=== PATIENT | male | born 1970 | race Caucasian/White ===

== ENCOUNTER 2022-10-09 11:49 | Outpatient (CLI) | payer OTHER, SELFPAY ==
[2022-10-09 20:08] LABS: Basophils Absolute Auto 0.1 K/mm3 (0.0-0.1); Basophils Percent Auto 0.6 % (0.2-1.2); Eosinophils Absolute Auto 0.2 K/mm3 (0-0.3); Eosinophils Percent Auto 2.4 % (0-4.4); Hematocrit 45.2 % (42.0-52.0); Hemoglobin 15.3 g/dL (14.0-18.0); Immature Granulocyte Absolute 0.05 K/mm3 (0.00-0.031); Immature Granulocyte Percent A 0.6 % (0-0.5); Lymphocytes Percent Auto 26.9 % (18.3-44.2); Mean Corpuscular HGB Conc 33.8 g/dl (32-36); Mean Corpuscular Hemoglobin 29.8 pg (26-34); Mean Corpuscular Volume 87.9 fl (80-100); Mean Platelet Volume 9.6 fl (7.4-10.4); Monocytes Absolute Auto 0.7 K/mm3 (0.1-0.6); Neutrophils Absolute Auto 4.9 K/mm3 (1.3-6.7); Neutrophils Percent Auto 60.5 % (45.5-73.1); Platelet Count Result 374 k/mm3 (150-375); Red Blood Count 5.14 M/mm3 (4.6-6.20); Red Cell Distribution Width 12.1 % (11.5-14.5); White Blood Count 8.2 K/mm3 (4.5-10.0)
[2022-10-09 20:22] LABS: Alanine Aminotransferase 48 U/L (6-50); Albumin Level 4.3 g/dL (3.5-5.1); Alkaline Phosphatase 83 U/L (38-126); Anion Gap 6 mmol/L (8-16); Aspartate Amino Transferase 49 U/L (17-59); Bilirubin,Total 0.5 mg/dL (0.2-1.3); Blood Urea Nitrogen 20 mg/dL (9-20); Calcium 9.5 mg/dL (8.4-10.2); Carbon Dioxide 31 mmol/L (22-30); Chloride 101 mmol/L (98-107); Cholesterol 205 mg/dL (0-200); Estimated Glomerular Filt Rate > 60; Glucose 81 mg/dL (65-110); HDL Direct 39 mg/dL; Potassium 4.8 mmol/L (3.4-5.0); Sodium 138 mmol/L (137-145); Triglycerides 209 mg/dL (<150)
[2022-10-09 20:33] LABS: LDL Cholesterol Direct 119 mg/dL
[2022-10-09 20:55] LABS: Prostate Specific Antigen 0.9 ng/mL (< OR = 4.0)
== END 2022-10-09 11:50 | disposition home or self-care (01) ==
LOC: ANHGOSHLAB 11:50
PROVIDERS: PCP Family Medicine; Visit Provider Family Medicine
DX: Z12.5 Encounter for screening for malignant neoplasm of prostate (principal); Z79.899 Other long term (current) drug therapy; I10 Essential (primary) hypertension
CPT/HCPCS: 36415; 80053; 80061; 84153; 84439; 84443; 85025; G0103

== ENCOUNTER 2022-10-12 15:37 | Outpatient (CLI) | payer OTHER, SELFPAY ==
--- NOTE | ~2022-10-12 | XR_ITS ---
XR chest 2V DATE: 10/12/2022 15:57 INDICATION: Cough for one week TECHNIQUE: PA and lateral views COMPARISON: None FINDINGS: Normal heart size. No hilar or mediastinal enlargement. No pulmonary infiltrate or consolid ation, pleural effusion or pulmonary vascular congestion or pneumothorax. IMPRESSION: No active cardiopulmonary disease Reviewed, dictated and finalized at [facility] L. RN GREEK STUDIES PROFESSOR
== END 2022-10-12 15:38 | disposition home or self-care (01) ==
PROVIDERS: PCP Family Medicine; Visit Provider Physician Assistant
DX: R05.9 Cough, unspecified (principal)
CPT/HCPCS: 71046

== ENCOUNTER 2022-10-23 02:13 | Day surgery (SDC) | payer OTHER, SELFPAY ==
[2022-10-05 14:36] VITALS: BMI 29.4
[2022-10-23 09:23] VITALS: BP 152/79; PULSE 69; RESP 18; TEMP 36.6; O2SAT 99; BMI 29.5
[2022-10-23] MEDS: LACTATED RINGERS 1,000 ML 150 ML IV CONT (09:31)
--- NOTE | 2022-10-23 09:57 | WPDANESEPPF ---
Anes - Initial Pre Proc Eval Procedure: Operation Date: 10/23/22 10:30 Proposed Procedures p Screening Colonoscopy - Sarath Diego MD Date/Time: 10/23/22 09:57 Surgeon: Sarath Diego MD Pre Op Diagnosis: neoplasm screening Patient Data Age: 52 Gender: M Height: 1.78 m Weight: 93.4 kg Last Vital Signs Temp 97.8 F 10/23/22 09:23 Pulse 69 10/23/22 09:23 Resp 18 10/23/22 09:23 BP 152/79 H 10/23/22 09:23 Pulse Ox 99 10/23/22 09:23 O2 Del Method Room Air 10/23/22 09:23 Allergies Allergy/AdvReac Type Severity Reaction Status Date / Time tetracycline Allergy Intermediate Hives / Verified 10/23/22 09:21 Red Face azithromycin Allergy Unknown Rash Verified 10/23/22 09:21 erythromycin base Allergy Unknown Skin Verified 10/23/22 09:21 Reaction hydrochlorothiazide Allergy Unknown Rash Verified 10/23/22 09:21 lisinopril Allergy Unknown Rash Verified 10/23/22 09:21 minocycline Allergy Unknown Skin Verified 10/23/22 09:21 Reaction irbesartan AdvReac Intermediate cough Verified 10/23/22 09:21 Home Medications Medication Instructions Recorded Confirmed Type cetirizine 10 mg tablet (All Day 10 mg PO DAILY 08/13/19 10/23/22 History Allergy (cetirizine)) fluticasone propionate 50 See Rx Instructions .Route 07/29/21 10/23/22 Rx mcg/actuation nasal .COMPLEX #16 mL spray,suspension pseudoephedrine HCl 120 mg See Rx Instructions .Route 12/17/21 10/23/22 Rx tablet,extended release (12 Hour .COMPLEX #180 tabs Decongestant ER) olmesartan 40 mg tablet (Benicar) 40 mg PO DAILY #180 tabs 04/07/22 10/23/22 Rx gabapentin 100 mg capsule 300 mg PO QHS #90 caps 05/10/22 10/23/22 Rx verapamil 180 mg 24 hr 180 mg PO DAILY #90 caps 05/17/22 10/23/22 Rx capsule,extended release amitriptyline 10 mg tablet 10 mg PO QHS #90 tabs 07/10/22 10/23/22 Rx ropinirole 0.5 mg tablet See Rx Instructions .Route 08/23/22 10/23/22 Rx .COMPLEX #450 tabs montelukast 10 mg tablet See Rx Instructions .Route 09/06/22 10/23/22 Rx .COMPLEX #90 tabs alprazolam 0.5 mg tablet 1 mg PO DAILY PRN anxiety #90 tabs 09/27/22 10/23/22 Rx fluticasone furoate 200 1 inh inhalation Q24H #60 ea 10/09/22 10/23/22 Rx mcg-vilanterol 25 mcg/dose inhalation powder (Breo Ellipta) valacyclovir 1 gram tablet 2,000 mg PO BID PRN Cold Sores #20 10/09/22 10/23/22 Rx tabs benzonatate 100 mg capsule 100 mg PO TID PRN cough #30 caps 10/16/22 10/23/22 Rx Patient hx anesthesia problems: none Family hx anesthesia problems: none Results Review: All pre-operative results and documents have been reviewed as part of the pre-operative evaluation. [facility] Past Medical History Medical History Pain in right shoulder Surgical History Surgical History H/O hernia repair History of vasectomy Family History Family History Father Family history of glaucoma Mother Hypertension Cerebrovascular accident Grandparent Hypertension Cerebrovascular accident Malignant neoplasm of prostate Family history of cardiovascular disease Social History Social History Smoking status: Never smoker Alcohol intake: current Drinks per week: 2 Substance use type: does not use Living arrangements: alone Anes - Eval Final PreProcedure Day of Procedure 10/23/22 09:57 Patient weight: obese Heart: regular rate and rhythm Lungs: clear to auscultation Neurological: alert and oriented Last oral intake: >/= 8 hours Emergent: no Anesthetic plan: proceed Results Review: All pre-operative results and documents have been reviewed as part of the pre-operative evaluation. Informed Consent: The patient's anesthetic plan and its attendant risks and benefits were discu
--- NOTE | 2022-10-23 10:07 | PM.HPGS ---
History of Present Illness History of Present Illness Consent: Risks, benefits, and alternatives have been discussed and questions answered. Patient agrees to proceed with procedure. Chief complaint: neoplasm screening Narrative: Issa Santana is a 52 year old male here for screening colonoscopy Review of Systems Constitutional: Constitutional: Denies headache(s) and Denies weakness Eyes: Eyes: Denies blurry vision ENT: Reports Normal hearing present, Denies headache(s) and Denies neck pain Cardiovascular: Cardiovascular: Denies chest pain and Denies dyspnea Respiratory: Respiratory: Denies dyspnea Gastrointestinal: Gastrointestinal: Reports no additional gastrointestinal complaints Genitourinary: Genitourinary: Denies dysuria Musculoskeletal: Musculoskeletal: Denies neck pain Integumentary/Breasts: Skin/Breast: Denies dry skin Neurologic: Reports Normal hearing present, Denies headache(s) and Denies weakness Psychiatric: Psychiatric: Denies anxiety Endocrine: Endocrine: Denies change in body appearance Hematologic/Lymphatic: Hematologic/Lymphatic: Denies easy bleeding Allergic/Immunologic: Allergic/Immunologic: Denies urticaria PMF Past Medical History Medical History Pain in right shoulder Surgical History Surgical History H/O hernia repair History of vasectomy Family History Family History Father Family history of glaucoma Mother Hypertension Cerebrovascular accident Grandparent Hypertension Cerebrovascular accident Malignant neoplasm of prostate Family history of cardiovascular disease Social History Social History Smoking status: Never smoker Alcohol intake: current Drinks per week: 2 Substance use type: does not use Living arrangements: alone Meds Home Medications and Allergies Home Medications Medication Instructions Recorded Confirmed Type cetirizine 10 mg tablet (All Day 10 mg PO DAILY 08/13/19 10/23/22 History Allergy (cetirizine)) fluticasone propionate 50 See Rx Instructions .Route 07/29/21 10/23/22 Rx mcg/actuation nasal .COMPLEX #16 mL spray,suspension pseudoephedrine HCl 120 mg See Rx Instructions .Route 12/17/21 10/23/22 Rx tablet,extended release (12 Hour .COMPLEX #180 tabs Decongestant ER) olmesartan 40 mg tablet (Benicar) 40 mg PO DAILY #180 tabs 04/07/22 10/23/22 Rx gabapentin 100 mg capsule 300 mg PO QHS #90 caps 05/10/22 10/23/22 Rx verapamil 180 mg 24 hr 180 mg PO DAILY #90 caps 05/17/22 10/23/22 Rx capsule,extended release amitriptyline 10 mg tablet 10 mg PO QHS #90 tabs 07/10/22 10/23/22 Rx ropinirole 0.5 mg tablet See Rx Instructions .Route 08/23/22 10/23/22 Rx .COMPLEX #450 tabs montelukast 10 mg tablet See Rx Instructions .Route 09/06/22 10/23/22 Rx .COMPLEX #90 tabs alprazolam 0.5 mg tablet 1 mg PO DAILY PRN anxiety #90 tabs 09/27/22 10/23/22 Rx fluticasone furoate 200 1 inh inhalation Q24H #60 ea 10/09/22 10/23/22 Rx mcg-vilanterol 25 mcg/dose inhalation powder (Breo Ellipta) valacyclovir 1 gram tablet 2,000 mg PO BID PRN Cold Sores #20 10/09/22 10/23/22 Rx tabs benzonatate 100 mg capsule 100 mg PO TID PRN cough #30 caps 10/16/22 10/23/22 Rx Allergies Allergy/AdvReac Type Severity Reaction Status Date / Time tetracycline Allergy Intermediate Hives / Verified 10/23/22 09:21 Red Face azithromycin Allergy Unknown Rash Verified 10/23/22 09:21 erythromycin base Allergy Unknown Skin Verified 10/23/22 09:21 Reaction hydrochlorothiazide Allergy Unknown Rash Verified 10/23/22 09:21 lisinopril Allergy Unknown Rash Verified 10/23/22 09:21 minocycline Allergy Unknown Skin Verified 10/23/22 09:21 Reaction irbesartan AdvReac Intermediate cough Verified 09/26
[2022-10-23 10:21] VITALS: BP 128/71; PULSE 77; RESP 22; O2SAT 99
[2022-10-23 10:31] VITALS: BP 122/51; PULSE 75; RESP 22; O2SAT 99
[2022-10-23 10:41] VITALS: BP 136/90; PULSE 70; RESP 20; O2SAT 100
== END 2022-10-23 10:55 | disposition home or self-care (01) ==
PROVIDERS: PCP Family Medicine; Visit Provider Internal Medicine Gastroenterology
PROC: 0DJD8ZZ Inspection of Lower Intestinal Tract, Via Natural or Artificial Opening Endoscopic (ICD-10-PCS; CPT 45378; principal; 2022-10-23 10:30)
DX: Z12.11 Encounter for screening for malignant neoplasm of colon (principal); K64.8 Other hemorrhoids; E66.9 Obesity, unspecified; Z68.29 Body mass index [BMI] 29.0-29.9, adult
CPT/HCPCS: 45378; J2704; J7120

== ENCOUNTER 2025-01-21 09:33 | Outpatient (CLI) | payer OTHER, SELFPAY ==
--- NOTE | 2025-01-21 10:13 | ECG_ITS ---
Test Date: 2025-01-21 10:22:00 Measurements Intervals [place] Rate: 60 P: 19 UT: 173 QRS: 19 QRSD: 118 T: 24 QT: 407 QTc: 407 Interpretive Statements SINUS RHYTHM INTRAVENTRICULAR CONDUCTION DELAY DELAYED PRECORDIAL R/S TRANSITION CONSIDER INFERIOR INFARCT, AGE INDETERMINATE ABNORMAL ECG No previous ECG available for comparison Electronically Signed On 01-21-2025 10:57:03 CDT by Jaime Camara D.O.
--- OUTSIDE RECORDS SUMMARY | 2025-01-21 10:29 | XMS_ITS | Clinical Summary ---
Author Organization [facility] Address Formerly [facility] [place] [address] Care Team Providers Care Senior Examiner Name Role Phone Rajinder Leung MD Primary Care Provider [phone] Social History Tobacco Use Types Packs/Day Years Used Date Smoking Tobacco: Never Assessed Sex and Gender Information Value Date Recorded Sex Assigned at Not on file Legal Sex Male 7:33 PM CDT Gender Identity Not on file Sexual Orientation Not on file Plan of Treatment Health Maintenance Due Date Last Done Comments Colorectal Cancer Screening Colonoscopy (10 Years) 1972 Annual Physical 1975 Hepatitis C 1990 Hepatitis B Vaccines (1 of 3 - 19+ 3-dose series) 1991 DTaP, Tdap and Td Vaccines ( 1 - Tdap) 10/12/2020 10/11/2020 Pneumococcal Vaccine: 50+ Years (1 of 1 - PCV) 2022 Zoster Vaccines (1 of 2) 2022 COVID-19 Vaccine (3 - 2023-2 5 season) 2024 05/06/2021, 04/15/2021 Meningococcal B Vaccine Aged Out No l onger eligible based on patient's age to complete this topic Meningococcal Vaccine Aged Out No jeannette husam eligible based on patient's age to complete this topic RSV Immunizations Under 20 Months Aged Out No longer eligible b ased on patient's age to complete this topic Insurance [facility] Care Teams Senior Examiner Relationship Specialty Start Date End Date Rajinder Leung MD [address] [place] [address] PCP - General FAMILY PRACTICE 11/14/21
--- OUTSIDE RECORDS SUMMARY | 2025-01-21 10:29 | XMS_ITS | Clinical Summary ---
Author Organization [facility] Address [address] [place] [address] Care Team Providers Care Windows Mobile Developer Name Role Phone Noaln Jones MD Primary Care Provider [phone] Allergies No known active allergies Medications ALPRAZolam (XANAX) 0.5 mg tabletIndicatio ns:anxiety Take 1 tablet (0.5 mg total) by mouth nightly 3 Active amitriptyline (ELAVIL) 10 mg tabletIndicatio ns:anxiety Take 1 tablet (10 mg total) by mouth nightly 3 Active fluticasone propionate (FLONASE) 50 mcg/actuation nasal sprayIndication s:Allergic Rhinitis Administer 1 spray into each nostril every morning 3 Active montelukast (SINGULAIR) 10 mg tabletIndicatio ns:Seasonal Allergic Rhinitis Take 1 tablet (10 mg total) by mouth every morning 3 Active olmesartan (BENICAR) 40 mg tabletIndicatio ns:hypertension Take 1 tablet (40 mg total) by mouth every morning Pt unsure of dosage so I contacted his pharmacy and he is to take a 40 mg tablet once daily 3 Active rOPINIRole (REQUIP) 0.5 mg tabletIndicatio ns:Restless Legs Syndrome Take 1 tablet (0.5 mg total) by mouth nightly 3 Active verapamil ER (VERELAN) 180 mg 24 hr capsuleIndicati ons:hypertensio n Take 1 capsule (180 mg total) by mouth nightly 3 Active valACYclovir (VALTREX) 1 gram tablet Take 0.5 tablets (500 mg total) by mouth daily as needed (fever blister) 3 Active vitamin E 400 unit capsuleIndicati ons:Dr prescribed Take 1 capsule (400 Units total) by mouth nightly Active magnesium oxide (MAG-OX) 400 mg (241.3 mg elemental magnesium) tabletIndicatio ns:Leg cramps Take 1 tablet (400 mg total) by mouth nightly Active herbal drugs capsule Take 2 capsules by mouth 2 (two) times a day Glaucoma Shield 2 capsules by mouth twice daily Active herbal drugs tablet Take by mouth [place] Eye Drops 1 drop each eye nightly and as needed for dry eye Active Active Problems Problem Noted Date Diagnosed Date Obstructive sleep apnea 04/13/2023 FELTON (obstructive sleep apnea) 02/06/2023 Dysphagia 02/06/2023 Surgical History Surgery Date Site/Laterality Comments TONSILLECTOMY AND ADENOIDECTOMY As a child INGUINAL HERNIA REPAIR Left As a child VASECTOMY not sure when/ infection and had same surgery a few years later Medical History Medical History Date Comments Allergic rhinitis Obstructive sleep apnea Hypertension Restless leg syndrome Family History Medical History Relation Name Comments Anesthesia problems Neg Hx Social History Tobacco Use Types Packs/Day Years Used Date Smoking Tobacco: Never Smokeless Tobacco: Never AUDIT-C Answer Date Recorded Q1: How often do you have a drink containing alc ohol? 2-4 times a month 06/01/2023 Q2: How many drinks containi ng alcohol do you have on a typical day when you are drinking? 3 or 4 06/01/2023 Q3: How often do you have si x or more drinks on one occasion? 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 Gender Identity Not on file Sexual Orientation Not on file Obstetrics History Last Filed Vital Signs Vital Sign Reading Time Taken Comments Blood Pressure - - Pulse - - Temperature - - Respiratory Rate - - Oxygen Saturation - - Inhaled Oxygen Concentration - - Weight 93 kg (205 lb) 06/01/2023 5:30 PM CDT Height 177.8 cm (5' 10 ) 06/01/2023 5:30 PM CDT Body Mass Index 29.41 06/01/2023 5:30 PM CDT Plan of Treatment Health Maintenance Due Date Last Done Comments Colon Cancer Screening-Colonoscopy 1972 Depression Screening 1972 Hepatitis C Screening 1972 Prostate Cancer Screening-PSA 1972 Hepatitis B Screening 1990 Regular Well Visit/Exam 18-64 1990 DTaP/Tdap/Td Vaccine (1 - Tdap) 10/12/2020 10/11/2020 Zoster Vaccine (1 of 2) 2022 Covid-19 Vaccine (3 - 2023-2 5 season) 2024 05/06/2021, 04/15/2021 Influenza Vaccine (#1) 2024 , 06/19/2018, 10/22/2017 Pneumococcal vaccine <65 Aged Out No longer eligible based on patient's age to complete this topic Insurance [facility] Address: [place] [address] [facility] Address: [place] [address] Care Teams Windows Mobile Developer Relationship Specialty Start Date End Date Nolan Jones MD PCP - General Family Medicine 10/26/22
--- OUTSIDE RECORDS SUMMARY | 2025-01-21 10:29 | XMS_ITS | Referral Summary ---
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 Gender Identity Not on file Sexual Orientation Not on file Last Filed Vital Signs Vital Sign Reading Time Taken Comments Blood Pressure - - Pulse - - Temperature - - Respiratory Rate - - Oxygen Saturation - - Inhaled Oxygen Concentration - - Weight 93 kg (205 lb) 06/01/2023 5:30 PM CDT Height 177.8 cm (5' 10 ) 06/01/2023 5:30 PM CDT Body Mass Index 29.41 06/01/2023 5:30 PM CDT Plan of Treatment Not on file Insurance [facility] Care Teams Machine Etcher Relationship Specialty Start Date End Date Nolan Jones MD PCP - General Family Medicine 10/26/22
== END 2025-01-21 09:34 | disposition home or self-care (01) ==
PROVIDERS: PCP Family Medicine; Visit Provider Otolaryngology
DX: J34.89 Other specified disorders of nose and nasal sinuses (principal); I45.9 Conduction disorder, unspecified; R94.31 Abnormal electrocardiogram [ECG] [EKG]
CPT/HCPCS: 93005

== ENCOUNTER 2025-08-11 08:23 | Outpatient (CLI) | payer OTHER, SELFPAY ==
--- NOTE | 2025-08-31 14:03 | P.SLEEP_ITS ---
Sleep Study - Home Unattended Date of Study: 08/11/25 Ordering Provider: Carmencita Coburn DO Interpreting Provider: Carmencita Coburn DO Home Sleep Study Type: Watch PAT Height: 1.78 m Weight: 97.069 kg Body Mass Index: 30.7 Neck Circumference (inches): 17 Squires: 0 Reason for Sleep Study Restless Legs syndrome and difficulty tolerating CPAP due to nasal septum surgery Sleep History The patient is a 55-year-old male that had a home sleep test ordered by his sleep physician for evaluation of sleep apnea. The patient was previously diagnosed with sleep apnea but has not used his CPAP recently due to recent nasal septum surgery. The patient admits to snoring loudly. He denies interruptions in breathing while asleep. He denies choking or gasping at night. He denies having trouble breathing on his back. He denies morning headaches. He does have a dry or sore mouth / throat in the morning. He denies nocturnal heartburn. He denies nocturia. He does have trouble falling and staying asleep. He denies having trouble returning to sleep if he wakes up throughout the night. He does use hypnotics or sedatives. He denies feeling anxious about sleep. He denies feeling tired or sleepy during the day. He denies feeling tired in the morning. He denies having the urge to fall asleep during the day. He denies feeling drowsy while driving. He denies sleep paralysis, cataplexy and hypnagogic/ hypnopompic hallucinations. He denies clenching or grinding his teeth. He denies kicking or jerking his legs excessively. He does have a restless feeling in his legs it does cause an urge to move his legs. It gets better with activity and worse with rest. It only occurs in the evening and it does cause a disturbance in his sleep. He goes to bed at 11:00 p.m. on work days and at midnight on his days off. It takes him 30 minutes to fall asleep. He gets 6-1/2 hours of sleep on work days and 8 hours on his days off. His sleep is somewhat restorative on his days off. He denies taking any planned naps. He denies dream enactment behavior. He denies sleep walking. He consumes 3-4 cups of caffeinated beverage per day. He consumes 2 alcoholic beverages 1-2 nights per week. He denies tobacco use. He exercises 3-4 nights per week. [facility]LY [facility], [facility] Past Medical History Medical History Pain in right shoulder Surgical History Surgical History H/O hernia repair History of vasectomy Family History Family History Father Family history of glaucoma Cellulitis Heart disease Mother Hypertension Cerebrovascular accident Grandparent Hypertension Cerebrovascular accident Malignant neoplasm of prostate Family history of cardiovascular disease Social History Social History Smoking status: Never smoker Alcohol intake: current Drinks per week: 2 Substance use type: does not use Living arrangements: alone Medications Home Medications ?Medication ?Instructions ?Recorded ?Confirmed ?Type cetirizine 10 mg tablet (All Day 10 mg PO DAILY 07/29/25 History Allergy (cetirizine)) calcium carbonate 600 mg PO DAILY 02/07/2402/15 History omega-3 fatty acids 1,000 mg 1,000 mg PO BID 02/07/24 07/29/25 History capsule vitamin E 1,150 unit/1.25 mL oral 1,150 unit PO DAILY 02/07/24 07/29/25 History liquid olmesartan 40 mg tablet (Benicar) 40 mg PO DAILY #180 tabs 09/22/24 07/29/25 Rx alprazolam 0.5 mg tablet 1 mg (2 x 0.5 mg) PO DAILY P RN 12/18/24 07/29/25 Rx anxiety #90 tabs amitriptyline 10 mg tablet 10 mg PO QHS #90 tabs 03/1307/29/25 Rx verapamil 180 mg 24 hr 180 mg PO DAILY #90 caps 07/29/25 Rx capsule,extended release valacyclovir 1 gram tablet 2,000 mg (2 x 1 gram) PO BI D PRN 04/23/25 07/29/25 Rx Cold Sores #20 tabs fluticasone propionate 50 1 spray intranasal DAILY 07/29/25 History mcg/actuation nasal spray,suspension (Flonase Allergy Relief) pyridoxine (vitamin B6) 50 mg 50 mg PO DAILY 05/27/25 07/29/25 History tablet ropinirole 0.5 mg tablet See Rx Instructions .Route 0 06/10/25 07/29/25 Rx .COMPLEX #450 tabs eszopiclone 2 mg tablet (Lunesta) 2 mg PO QHS #1 table t 07/29/25 07/29/25 Rx magnesium 250 mg tablet 400 mg PO DAILY 07/29/2502/15 History Sleep Procedure The sleep study was completed using [employer] a technically adequate device with seven channels: peripheral arterial tone, actigraphy, body position, snore, respiratory movement, pulse oximetry, sleep staging, and heart rate. Prior to using the device, the patient received verbal and written instructions for its application and was provided with the help desk phone number for additional telephonic instruction with 24-hour availability of qualified personnel to answer questions. The study was scored using CMS guidelines. Sleep Architecture The total recording time is 8 hrs, 14 min. The total sleep time is 7 hrs, 19 min. Sleep latency is 17 minutes. REM latency is 83 minutes. The patient had 5 episodes of waking. Sleep architecture shows 14.2% deep sleep, 58.6% light sleep, and (as % Total Sleep Time) showed NREM (Light 58.6%; Deep 14.2%), and a 27.2% stage REM. The patient spent 90.8% of total sleep time in the supine position. Sleep efficiency was 88.87. Respiratory Analysis The overall AHI (pAHI 4%:) is 7.1. The overall AHI (pAHI 3%:) is 8.6. The central AHI is 1.6. The AHI was 9.4 in NREM and 6.6 in REM sleep. The AHI was 7.0 in Supine and 25.9 in Non-supine sleep. Percent of [place] respirations is 0.0. Oximetry Data The oxygen desaturation index (HOLLIS 4%:) is 5.5. The mean saturation is 94%, and the lowest saturation is 79%. Time spent with saturation < 88% is 1.5 minutes. Snoring Profile Snoring average intensity is 42 dB. The patient snored above 45 decibels for 72.9 minutes, 16.6% of sleep time. Cardiac Profile The average pulse rate is 65 beats per minutes. The lowest pulse rate is 52 bpm. The highest pulse rate reported is 89 bpm. Atrial fibrillation was not detected. Premature beats occur <0.1 per minute. Assessment and Plan Assessment and Plan (1) FELTON (obstructive sleep apnea): Code(s): G47.33 - Obstructive sleep apnea (adult) (pediatric) Status: Acute Assessment and Plan: The patient had an overall AHI of 7.1 with desaturation down to 79%. This is consistent with mild sleep apnea. Due to the patient's restless leg syndrome, he qualifies for treatment. I recommend that the patient be prescribed Resmed AutoPAP 5-15 cm H2O, CPAP mask/filters/heted tubing and heated humidity. This should be used with all episodes of sleep.? Compliance should be reviewed within 31-90 days of starting therapy for usage greater than 4 hours per night greater than 70% of the nights. The patient should be asked about symptoms such as?excessive daytime sleepiness, quality of sleep, decreased nocturia, increased?mental functioning such as memory, mood, and concentration. Data The data obtained during this sleep study is adequate for interpretation. Certification This sleep study has been reviewed by a board certified sleep medicine physician.
[2025-08-31 14:04] VITALS: BMI 30.7
== END 2025-08-12 10:30 | disposition home or self-care (01) ==
PROVIDERS: PCP Family Medicine; Visit Provider Family Medicine
DX: G47.33 Obstructive sleep apnea (adult) (pediatric) (principal)
CPT/HCPCS: 95800